=== PATIENT | female | born 1965 | race Two or more races ===

== ENCOUNTER 2022-12-06 16:17 | Emergency (ER) | payer OTHER ==
[~2022-12-06] VITALS: Ht 154.9 cm; Wt 54.0 kg
--- NOTE | 2022-12-06 18:04 | NUR ---
PT WAS EVALUATED BY DR QUINTERO. PT WAS D/C'd TO HOME. D/CINSTRUCTIONS GIVEN TO THE PT BY DR QUINTERO.
[2022-12-06 18:07] VITALS: BP 131/75
== END 2022-12-06 18:08 | disposition home or self-care (01) ==
LOC: ER 16:20
DX: S93.402A Sprain of unspecified ligament of left ankle, initial encounter (principal); S30.0XXA Contusion of lower back and pelvis, initial encounter; W01.0XXA Fall on same level from slipping, tripping and stumbling without subsequent striking against object, initial encounter; Y93.89 Activity, other specified; Y92.89 Other specified places as the place of occurrence of the external cause; Y99.8 Other external cause status
CPT/HCPCS: 72220; 73610; 73630; A4663

== ENCOUNTER 2023-04-06 12:40 | Emergency (ER) | payer OTHER ==
[~2023-04-06] VITALS: Ht 154.9 cm; Wt 53.1 kg
[2023-04-06 13:26] VITALS: O2SAT 97
== END 2023-04-06 16:10 | disposition left against medical advice (07) ==
LOC: ER 12:40
DX: Z53.21 Procedure and treatment not carried out due to patient leaving prior to being seen by health care provider (principal)
CPT/HCPCS: A4663